=== PATIENT | female | born 1955 | race Caucasian/White ===

== ENCOUNTER → 2024-05-08 14:01 | Outpatient (REF) | payer MEDICARE, OTHER, SELFPAY | LOC: WDC 14:01 | PROVIDERS: ATTENDING PHYSICIAN Internal Medicine | DX: Z12.31 Encounter for screening mammogram for malignant neoplasm of breast (principal) | CPT/HCPCS: 77063; 77067 ==

== ENCOUNTER → 2025-06-25 14:07 | Outpatient (REF) | payer MEDICARE, OTHER, SELFPAY | LOC: HWWDC 14:07 | PROVIDERS: ATTENDING PHYSICIAN Internal Medicine | DX: Z12.31 Encounter for screening mammogram for malignant neoplasm of breast (principal) | CPT/HCPCS: 77063; 77067 ==